=== PATIENT | female | born 2000 | race Caucasian/White ===

== ENCOUNTER 2023-03-21 12:11 | Outpatient (OUT) | payer BC, SELFPAY ==
--- NOTE | 2023-03-21 | XR_ITS ---
The [address] [address] Patient Name: JAIME HAYNES MRN: [id number] date: 2000 Sex: F Assigned Patient Location: [facility] Current Patient Location: Accession/Order Number: [id number] Exam Date: 03/21/2023 12:25 Report Date: 03/22/2023 08:53 At the request of: ANALILIA SIM Procedure: XR hip RT 2V w/ pelvis PROCEDURE: XR hip RT 2V w/ pelvis HISTORY: M25.551, PAIN TO RIGHT HIP COMPARISON: None. FINDINGS: BONES:No fracture, acute abnormality, or significant arthropathy. SOFT TISSUES:No visible soft tissue swelling. EFFUSION:None visible. OTHER: IUD within midline pelvis. XR/XR hip RT 2V w/ pelvis IMPRESSION: 1. Normal appearance of the hip joints. Electronically authenticated by: CHARLIE GONZALEZ Date: 03/22/2023 08:53
== END 2023-03-21 12:12 | disposition home or self-care (01) ==
LOC: RAD 12:16
PROVIDERS: PCP Nurse Practitioner Family; Visit Provider Nurse Practitioner Family
DX: M25.551 Pain in right hip (principal)
CPT/HCPCS: 73502

== ENCOUNTER 2023-10-01 14:20 | Emergency (ER) | payer BC, SELFPAY ==
[2023-10-01 14:33] VITALS: BP 111/79; PULSE 102; TEMP 37; O2SAT 100; BMI 31.9
--- NOTE | 2023-10-01 14:44 | ED.GENADUL1 ---
HPI HPI - General Adult General Chief complaint: Nausea/Vomiting/Diarrhea Stated complaint: NAUSEA/VOMITING Time Seen by Provider: 10/01/23 14:38 Source: patient and family Mode of arrival: Wheelchair Limitations: no limitations History of Present Illness HPI narrative: Patient is a 22-year-old female who presents to the emergency department for a 1 day history of nausea and vomiting associated with diarrhea that began this morning. She reports approximately 8 episodes of vomiting and multiple episodes of loose stool. She reports mild lower abdominal cramping. No flank pain or back pain. She denies fevers or upper respiratory symptoms. She has not had any urinary symptoms and has an IUD in place with no concern for . No sick contacts in the home. She denies any recent antibiotics or travel. Related Data Previous Rx's ?Medication ?Instructions ?Recorded hyoscyamine sulfate 0.125 mg 0.125 mg PO Q6H PRN abdominal pain 10/01/23 tablet (Levsin) #12 tabs ondansetron 4 mg disintegrating 4 mg PO Q6H PRN nausea and 10/01/23 tablet vomiting #12 tabs Allergies Allergy/AdvReac Type Severity Reaction Status Date / Time amoxicillin AdvReac Hives Verified 10/01/23 14:39 Opioid HPI Opioid Management Most Recent Opioid Data: No Data to Display Review of Systems ROS Constitutional Reports: chills; Denies: fever Ears, nose, mouth, and throat Denies: throat pain or nasal congestion Cardiovascular Denies: chest pain Respiratory Denies: shortness of breath Gastrointestinal Reports: abdominal pain, nausea, vomiting and diarrhea Genitourinary Denies: painful urination Musculoskeletal Denies: back pain Integumentary/Breast Denies: rash Hematologic/Lymphatic Denies: easy bruising or easy bleeding Exam Narrative Exam Narrative: Gen.: Awake, alert, in no distress Head: Normocephalic, atraumatic ENT: Moist mucous membranes, Bilateral TMs clear, no pharyngeal erythema Respiratory: No respiratory distress, lungs clear bilaterally Cardio: Regular rate and rhythm Gastrointestinal: Abdomen is soft, nondistended and Minimal suprapubic tenderness to palpation with no McBurney's tenderness or pain out of proportion on exam Extremities: Moves extremities equally Psych: Normal mood and affect Neuro: No focal neuro deficit Skin: Warm, dry, intact Constitutional Vital Signs, click to edit/add: Last Vital Signs Temp 98.6 F 10/01/23 14:33 Pulse 84 10/01/23 16:36 Resp 18 10/01/23 16:36 BP 125/74 10/01/23 16:36 Pulse Ox 99 10/01/23 16:36 O2 Del Method Room Air 10/01/23 16:36 Course Vital Signs Vital signs: Vital Signs Temperature 98.6 F 10/01/23 14:33 Pulse Rate 102 H 10/01/23 14:33 Respiratory Rate 16 10/01/23 14:33 Blood Pressure 111/79 10/01/23 14:33 Pulse Oximetry 100 10/01/23 14:33 Oxygen Delivery Method Room Air 10/01/23 14:33 Temperature 98.6 F 10/01/23 14:33 Pulse Rate 84 10/01/23 16:36 Respiratory Rate 18 10/01/23 16:36 Blood Pressure 125/74 10/01/23 16:36 Pulse Oximetry 99 10/01/23 16:36 Oxygen Delivery Method Room Air 10/01/23 16:36 Medical Decision Making MDM Narrative Medical decision making narrative: Patient treated with IV fluids, Zofran and Levsin with significant improvement. No episodes of emesis or diarrhea in the ER and she tolerated ice chips easily and reported feeling much better. Lab studies show minimal leukocytosis with no bandemia, stable vital signs and patient will be discharged home with symptomatic treatment of Zofran and Levsin. Work note provided. Follow-up with PCP and return to the ER if symptoms change or worsen. Abdomen is soft and benign at discharge. Medical Records Medical records reviewed: Yes I reviewed the patient's medical records Lab Data Lab results reviewed: Yes I reviewed the patient's lab results Labs: Lab Results 10/01/23 10/01/23 Range/Units 14:50 15:35 WBC 13.0 H (4.0-11.0) 10^3/uL RBC 4.99 (4.20-5.40) 10^6/uL Hgb 12.8 (12.0-16.0) g/dL Hct 39.8 (36.0-48.0) % MCV 79.8 L (81.0-99.0) fL MCH 25.7 L (26.7-34.0) pg MCHC 32.2 (29.9-35.2) g/dL RDW 15.9 H (11.0-15.0) % Plt Count 315 (150-450) 10^3/uL MPV 9.6 (9.5-13.5) fL Seg Neuts % (Manual) 96.0 Lymphocytes % (Manual) 4.0 L (20.5-60.0) % Monocytes % (Manual) 0.0 L (1.7-12.0) % Eosinophils % (Manual) 0.0 L (0.9-7.0) % Basophils % (Manual) 0.0 L (0.2-2.0) % Neutrophils # (Manual) 12.48 H (1.4-6.5) 10^3/uL Lymphocytes # (Manual) 0.52 L (1.20-3.80) 10^3/uL Monocytes # (Manual) 0.00 L (0.30-0.80) 10^3/uL Eosinophils # (Manual) 0.00 (0.00-0.70) 10^3/uL Basophils # (Manual) 0.00 (0.00-0.10) 10^3/uL Sodium 134 L (136-145) mmol/L Potassium 3.5 (3.5-5.1) mmol/L Chloride 99 (98-107) mmol/L Carbon Dioxide 23.3 (21.0-32.0) mmol/L Anion Gap 15.2 BUN 15.0 (7.0-18.0) mg/dL Creatinine 0.81 (0.55-1.02) mg/dL Est GFR ( Amer) >60 (>=60) Est GFR (Non-Af Amer) >60 (>=60) BUN/Creatinine Ratio 18.5 Glucose 105 (74-106) mg/dL Lactate 1.9 (0.4-2.0) mmol/L Calcium 8.8 (8.5-10.1) mg/dL Total Bilirubin 0.8 (0.2-1.0) mg/dL AST 13 L (15-37) U/L ALT 18 (14-59) U/L Alkaline Phosphatase 46 (46-116) U/L Total Protein 8.3 H (6.4-8.2) g/dL Albumin 4.0 (3.4-5.0) g/dL Globulin 4.3 g/dL Albumin/Globulin Ratio 0.9 Lipase 29.0 (16.0-77.0) U/L Urine Color Yellow (YELLOW) Urine Clarity Clear (CLEAR) Urine pH 8.0 (5.0-9.0) Ur Specific [place] 1.015 (1.005-1.025) Urine Protein Negative (NEG/TRACE) mg/dL Urine Glucose (UA) Negative (NEGATIVE) mg/dL Urine Ketones 15 A (NEGATIVE) mg/dL Urine Occult Blood Small A (NEGATIVE) Urine Nitrite Negative (NEGATIVE) Urine Bilirubin Negative (NEGATIVE) Urine Urobilinogen 0.2 (0.2-1.0) EU/dL Ur Leukocyte Esterase Negative (NEGATIVE) Urine RBC 0-2 (0-2) #/HPF Urine WBC 0-2 A (NONE SEEN) #/HPF Ur Squamous Epith Cells Rare (NONE/RARE) #/LPF Urine Crystals None seen (None Seen) #/HPF Urine Bacteria None seen (NONE SEEN) #/HPF Urine Casts None seen (NONE SEEN) #/LPF Urine Mucus Trace A (NONE SEEN) Discharge Plan Discharge Stand Alone Forms: Portal Instructions Chief Complaint: Nausea/Vomiting/Diarrhea Clinical Impression: Diarrhea, Nausea & vomiting Patient Disposition: Home, Self-Care Time of Disposition Decision: 16:31 Condition: Good Prescriptions / Home Meds: New hyoscyamine sulfate [Levsin] 0.125 mg tablet 0.125 mg PO Q6H PRN (Reason: abdominal pain) Qty: 12 0RF ondansetron 4 mg tablet,disintegrating 4 mg PO Q6H PRN (Reason: nausea and vomiting) Qty: 12 0RF Print Language: Turkish Instructions: Acute Nausea and Vomiting (ED), Acute Diarrhea (ED) Referrals: Aliza Parra NP [Primary Care Provider] - 1 week Discharge Date/Time: 10/01/23 16:37
[2023-10-01] MEDS: HYOSCYAMINE SULFATE 0.125 MG TAB.SUBL SL (14:53)
[2023-10-01] MEDS: 0.9 % SODIUM CHLORIDE 1,000 ML 1000 ML IV (14:53)
[2023-10-01] MEDS: ONDANSETRON PF 4 MG/2 ML VIAL IV (14:53)
[2023-10-01 14:58] LABS: Hematocrit 39.8 % (36.0-48.0); Hemoglobin 12.8 g/dL (12.0-16.0); Mean Corpuscular HGB Conc 32.2 g/dL (29.9-35.2); Mean Corpuscular Hemoglobin 25.7 pg (26.7-34.0); Mean Corpuscular Volume 79.8 fL (81.0-99.0); Mean Platelet Volume 9.6 fL (9.5-13.5); Platelet Count 315 10^3/uL (150-450); Red Blood Count 4.99 10^6/uL (4.20-5.40); Red Cell Distribution Width 15.9 % (11.0-15.0)
[2023-10-01 15:13] LABS: Lactate/Lactic Acid 1.9 mmol/L (0.4-2.0)
[2023-10-01 15:15] LABS: Alanine Aminotransferase 18 U/L (14-59); Albumin Globulin Ratio 0.9; Alkaline Phosphatase 46 U/L (46-116); Anion Gap 15.2; Aspartate Amino Transferase 13 U/L (15-37); BUN Creatinine Ratio 18.5; Bilirubin Total 0.8 mg/dL (0.2-1.0); Calcium 8.8 mg/dL (8.5-10.1); Carbon Dioxide 23.3 mmol/L (21.0-32.0); Chloride 99 mmol/L (98-107); Estimated GFR (African America >60 (>=60); Estimated GFR (Non-African Ame >60 (>=60); Globulin 4.3 g/dL; Glucose 105 mg/dL (74-106); Potassium 3.5 mmol/L (3.5-5.1); Sodium 134 mmol/L (136-145); Total Protein 8.3 g/dL (6.4-8.2)
[2023-10-01 15:36] LABS: Lymphocytes Absolute Manual 0.52 10^3/uL (1.20-3.80); Segmented Neut Absolute Manual 12.48 10^3/uL (1.4-6.5)
[2023-10-01 15:49] LABS: Bilirubin Urine NEGATIVE (NEGATIVE); Blood Urine SMALL (NEGATIVE); Clarity Urine CLEAR (CLEAR); Color Urine YELLOW (YELLOW); Glucose Urine UA NEGATIVE (NEGATIVE); Ketones Urine 15 mg/dL (NEGATIVE); Leukocyte Esterase Urine NEGATIVE (NEGATIVE); Nitrite Urine NEGATIVE (NEGATIVE); Protein Urine NEGATIVE (NEG/TRACE); Specific Gravity Urine 1.015 (1.005-1.025); Urine Microscopic Indicated YES; Urobilinogen Urine 0.2 EU/dL (0.2-1.0)
[2023-10-01 16:26] LABS: Bacteria Urine NONE SEEN #/HPF (NONE SEEN); Cast Seen? NONE SEEN #/LPF (NONE SEEN); Crystals Seen? None Seen #/HPF (None Seen); Mucus Urine TRACE (NONE SEEN); RBC Urine 0-2 #/HPF (0-2); Squamous Epithelial Cell Urine RARE #/LPF (NONE/RARE); WBC Urine 0-2 #/HPF (NONE SEEN)
[2023-10-01 16:36] VITALS: BP 125/74; PULSE 84; O2SAT 99
== END 2023-10-01 16:37 | disposition home or self-care (01) ==
PROVIDERS: Physician Assistant; Emergency Provider Emergency Medicine; PCP Nurse Practitioner Family
DX: R11.2 Nausea with vomiting, unspecified (principal); R19.7 Diarrhea, unspecified; Z97.5 Presence of (intrauterine) contraceptive device
CPT/HCPCS: 36415; 80053; 81001; 83605; 83690; 85007; 85027; 87507; 96374; 99285

== ENCOUNTER 2024-04-26 17:47 | Emergency (ER) | payer BC, SELFPAY ==
[2024-04-26 17:49] VITALS: BP 147/86; PULSE 72; TEMP 36.7; O2SAT 100; BMI 33.3
--- NOTE | 2024-04-26 18:08 | CT_ITS ---
[address] [address] Patient Name: JAIME HAYNES MRN: [id number] date: 2000 Sex: F Assigned Patient Location: ER Current Patient Location: ED.MAIN Accession/Order Number: [id number] Exam Date: 04/26/2024 18:37 Report Date: 04/26/2024 19:36 At the request of: SARAH ROMAN Procedure: CT head/brain wo con EXAM: CT head/brain wo con HISTORY: trauma head COMPARISON: None. TECHNIQUE: Axial CT scans through the head were obtained without IV contrast administration. Dose reduction techniques were achieved by using: automated exposure control and/or adjustment of mA and /or kV according to patient size and/or use of iterative reconstruction technique. FINDINGS: There is no acute intracranial hemorrhage or abnormal extra-axial fluid collection. No mass effect or midline shift is seen. There is no evidence of large acute territorial infarction. There is no hydrocephalus. To the limit of CT, the posterior fossa appears unremarkable. The calvaria and extra cranial soft tissues are unremarkable. The visualized orbits show no abnormality. The visualized paranasal sinuses show no air-fluid level. Mastoid air cells are clear. CT/CT head/brain wo con IMPRESSION: No acute intracranial process. Electronically authenticated by: MOHINDER CROWE Date: 04/26/2024 19:36
--- NOTE | 2024-04-26 18:53 | ED_ITS ---
HPI HPI - Head Injury General Chief complaint: Head Injury Stated complaint: Head Injury Time Seen by Provider: 04/26/24 18:07 Source: patient Mode of arrival: walk-in History of Present Illness HPI Narrative: The patient is coming to us with nausea vomiting and headache that started after she had a head injury almost 4 to 5 hours ago, she mentioned that she was going downstairs when apparently hit BMP very forcefully while she is using the stairs, W more just above the stairs and she did not pass out then Related Data Previous Rx's ?Medication ?Instructions ?Recorded hyoscyamine sulfate 0.125 mg 0.125 mg PO Q6H PRN abdominal pain 10/01/23 tablet (Levsin) #12 tabs ondansetron 4 mg disintegrating 4 mg PO Q6H PRN nausea and 10/01/23 tablet vomiting #12 tabs Allergies Allergy/AdvReac Type Severity Reaction Status Date / Time amoxicillin AdvReac Hives Verified 10/01/23 14:39 Opioid HPI Opioid Management Most Recent Pain and Opioid Data: No Data to Display Review of Systems ROS Status of ROS 10 or more systems reviewed and unremark able except as noted in history and below PFSH PFS Social History Little interest or pleasure in doing things: not at all Feeling down, depressed, or hopeless: not at all Exam Narrative Exam Narrative: Nurses notes and vital signs reviewed and patient is not hypoxic. General: Well-appearing and in no apparent distress. Skin: Warm, dry, no pallor noted. No rash. Head: Normocephalic, There is tenderness upon palpation of the left temporal area Neck: Supple, non-tender. Eye: Pupils are equal, round and EOMI. No scleral icterus. Ears, Nose, Mouth, and Throat: TM are clear, no nasal mucosal hypertrophy. Oral mucosa is moist, no posterior oropharynx erythema, uvula is mid-line Cardiovascular: Regular Rate and Rhythm without murmur, gallop or rub. Respiratory: No accessory muscle use or respiratory distress. Lungs are clear to auscultation, no wheezing, rales or rhonchi Chest Wall: no tenderness Back: No midline thoracic or lumbar vertebral tenderness. No CVA tenderness Musculoskeletal: normal ROM, no calf or popliteal tenderness, no lower extremity edema/swelling GI: Abdomen is soft, non-distended. Normal bowel sounds. No masses appreciated. No tenderness to palpation. No rebound, guarding, or rigidity noted. Neurological: A&O x4. No cranial nerve dysfunction observed. No truncal ataxia. Moves all extremities. Sensation intact. Psychiatric: Cooperative and interactive. Normal mood and affect. Constitutional Vital Signs, click to edit/add: Last Vital Signs Temp 98.1 F 04/26/24 17:49 Pulse 72 04/26/24 17:49 Resp 18 04/26/24 17:49 BP 147/86 H 04/26/24 17:49 Pulse Ox 100 04/26/24 17:49 O2 Del Method Room Air 04/26/24 17:49 Course Vital Signs Vital signs: Vital Signs Temperature 98.1 F 04/26/24 17:49 Pulse Rate 72 04/26/24 17:49 Respiratory Rate 18 04/26/24 17:49 Blood Pressure 147/86 H 04/26/24 17:49 Pulse Oximetry 100 04/26/24 17:49 Oxygen Delivery Method Room Air 04/26/24 17:49 Temperature 98.1 F 04/26/24 17:49 Pulse Rate 72 04/26/24 17:49 Respiratory Rate 18 04/26/24 17:49 Blood Pressure 147/86 H 04/26/24 17:49 Pulse Oximetry 100 04/26/24 17:49 Oxygen Delivery Method Room Air 04/26/24 17:49 MDM - Head Injury MDM Narrative Medical decision making narrative: The patient CT head was ordered pending Discharge Plan Discharge Patient Disposition: Still a Patient
[2024-04-26] MEDS: ONDANSETRON 4 MG RAPDIS TABLET SL (20:05)
== END 2024-04-26 20:13 | disposition home or self-care (01) ==
PROVIDERS: Emergency Provider Internal Medicine; PCP Nurse Practitioner Family
DX: S09.90XA Unspecified injury of head, initial encounter (principal); W10.8XXA Fall (on) (from) other stairs and steps, initial encounter; R11.2 Nausea with vomiting, unspecified; R51.9 Headache, unspecified
CPT/HCPCS: 70450; 99284; Q0162

== ENCOUNTER 2024-10-14 17:49 | Emergency (ER) | payer OTHER, SELFPAY ==
[2024-10-14 18:06] VITALS: BP 118/75; PULSE 84; TEMP 36.8; O2SAT 97; BMI 33.0
--- NOTE | 2024-10-14 18:11 | ED.WOUNDLAC1 ---
HPI - Wound/Laceration General Chief Complaint: Wound/Laceration Stated Complaint: LEFT HAND LACERATION Time Seen by Provider: 10/14/24 17:53 Source: patient Mode of arrival: walk-in History of Present Illness HPI narrative: Patient is a 23-year-old female presents to the emergency department for superficial laceration to the palm of the left hand. 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 She states there was a moderate amount of bleeding. Unknown last tetanus. She has no other focal medical complaints. Bleeding is well-controlled at this time. No concern Related Data Home Medications ?Medication ?Instructions ?Recorded ?Confirmed No Known Home Medications 10/14/24 10/14/24 Allergies Allergy/AdvReac Type Severity Reaction Status Date / Time amoxicillin AdvReac Hives Verified 10/01/23 14:39 Review of Systems ROS Constitutional Denies: fever or chills Ears, nose, mouth, and throat Denies: throat pain or nasal congestion Cardiovascular Denies: chest pain Respiratory Denies: shortness of breath or cough Gastrointestinal Denies: nausea or vomiting Musculoskeletal Denies: back pain or neck pain Integumentary/Breast Denies: rash Neurological Denies: numbness in extremities or weakness in extremities Hematologic/Lymphatic Denies: easy bruising or easy bleeding PFSH PFSH Social History Little interest or pleasure in doing things: not at all Feeling down, depressed, or hopeless: not at all Exam Narrative Exam Narrative: Gen.: Awake, alert, in no distress Head: Normocephalic, atraumatic ENT: Moist mucous membranes Respiratory: No respiratory distress Extremities: Superficial laceration noted to the palm of the left hand, the edges of the laceration approximately 2 cm on each side with no extension into the dermis. Central 1 cm of the laceration is approximately 1 mm in depth, edges of the laceration do not gap and there is no active bleeding, no subcutaneous tissue involvement. Psych: Normal mood and affect Neuro: No focal neuro deficit Skin: Warm, dry Constitutional Vital Signs, click to edit/add: Last Vital Signs Temp 98.2 F 10/14/24 18:06 Pulse 84 10/14/24 18:06 Resp 18 05/07/25 18:06 BP 118/75 10/14/24 18:06 Pulse Ox 97 10/14/24 18:06 O2 Del Method Room Air 10/14/24 18:06 Course Vital Signs Vital signs: Vital Signs Temperature 98.2 F 10/14/24 18:06 Pulse Rate 84 10/14/24 18:06 Respiratory Rate 18 10/14/24 18:06 Blood Pressure 118/75 10/14/24 18:06 Pulse Oximetry 97 10/14/24 18:06 Oxygen Delivery Method Room Air 10/14/24 18:06 Temperature 98.2 F 10/14/24 18:06 Pulse Rate 84 10/14/24 18:06 Respiratory Rate 18 10/14/24 18:06 Blood Pressure 118/75 10/14/24 18:06 Pulse Oximetry 97 10/14/24 18:06 Oxygen Delivery Method Room Air 10/14/24 18:06 MDM - Wound/Laceration MDM Narrative Medical decision making narrative: No indication for suture placement, laceration is very superficial, no active bleeding and does not extend into the subcutaneous tissue. Tetanus updated and the area was cleansed and dressed with bacitracin. She is neurovascularly intact at discharge. Referred to occupational health for follow-up. She was encouraged to follow wound care instructions and wear gloves while at work, no dishwashing. Return to the ER if symptoms change or worsen SUPERVISED APC VISIT, PHYSICIAN ATTESTATION: Based on the medical record the care appears appropriate. ? Medical Records Attestation: I reviewed the patient's medical records. Discharge Plan Discharge Chief Complaint: Wound/Laceration Clinical Impression: Superficial laceration of left hand Patient Disposition: Home, Self-Care Time of Disposition Decision: 18:10 Condition: Good Prescriptions / Home Meds: No Action No Known Home Medications Print Language: Hungarian Instructions: Laceration (ED) Referrals: [facility]Outside[facility] - 1 week
[2024-10-14] MEDS: ADACEL DIPH,PERTUSS(ACELL),TET VAC/PF 0.5 ML ADULT SYRINGE IM (18:21)
[2024-10-14] MEDS: BACITRACIN 0.9 GM PACKET 1 PACKET TOPICAL (18:22)
[2024-10-14 18:29] VITALS: BP 128/88; PULSE 88; O2SAT 98
== END 2024-10-14 18:30 | disposition home or self-care (01) ==
PROVIDERS: Emergency Provider Emergency Medicine; PCP Nurse Practitioner Family
DX: S61.412A Laceration without foreign body of left hand, initial encounter (principal); W26.0XXA Contact with knife, initial encounter; Z23 Encounter for immunization
CPT/HCPCS: 90471; 90715; 99283